=== PATIENT | female | born 1945 | race Two or more races ===

== ENCOUNTER 2025-01-22 10:46 | Inpatient (IN) | payer OTHER ==
[~2025-01-22] VITALS: Ht 144.8 cm; Wt 53.5 kg
[2025-01-22 14:16] LABS: BASO % 0.6 % (0.1-1.2); EOS # 0.18 (0.04-0.54); EOS % 2.7 % (0.7-7.0); LYMPH # 1.64 (1.18-3.74); LYMPH % 24.3 % (19.3-53.1); MEAN PLATELET VOLUME 10.30 fl (9.4-12.4); MONO # 0.52 (0.24-0.82); MONO % 7.7 % (4.7-12.5); NEUT # 4.36 (1.56-6.13); NEUT % 64.6 % (34.0-71.1); RED CELL DISTRIBUTION WIDTH 13.1 % (11.6-14.4)
[2025-01-22] MEDS ORDERED: ASPIRIN 325 MG TABLET.EC PO ONE ×2 (14:30→15:58)
[2025-01-22 14:35] LABS: BUN CREA RATIO 22.0 (7.0-25.0); CREATININE SERUM 0.92 mg/dL (0.55-1.02); GFR 58.73; GLUCOSE FASTING 85.0 mg/dL (65-100); OSMOLALITY SERUM 283.0 MOSM/KG (275-295)
[2025-01-22] MEDS ORDERED: ATORVASTATIN CALCIUM 40 MG TABLET PO SCH (17:09)
[2025-01-22] MEDS ORDERED: ACETAMINOPHEN 500 MG GEL..CAP PO PRN (17:15)
[2025-01-22] MEDS ORDERED: 0.9 % SODIUM CHLORIDE 1,000 ML IV SCH (17:15)
[2025-01-22 18:44] LABS: INR 1.01
[2025-01-22 18:59] LABS: URINE APPEARANCE Clear; URINE BILIRRUBIN Negative (NEGATIVE); URINE BLOOD Negative; URINE COLOR Yellow; URINE GLUCOSE Negative (NEGATIVE); URINE KETONE Negative (NEGATIVE); URINE LEUKOCYTE Small; URINE NITRATE Negative; URINE PROTEIN Negative (NEGATIVE); URINE UROBILINOGEN 0.2 E.U./dl
[2025-01-22 19:04] LABS: URINE BACTERIA 75.4 uL (0.0-1933); URINE EPITHELIAL CELLS 16.0 uL (0.0-38.8); URINE WBC 49.1 uL (0.0-23.2)
[2025-01-22 19:08] LABS: URINE CAST 0.14 uL (0.0-1.40); URINE RBC 0.4 uL (0.0-20.8)
[2025-01-22 22:15] VITALS: O2SAT 97
[2025-01-23] VITALS (7 sets, daily range): BP systolic 110–132; BP diastolic 66–69; O2SAT 95–100
[2025-01-23 07:10] LABS: CHOL HDL RATIO 4.3 (0-5.0); HDL 42.0 mg/dl (40-60); LDL 113.0 mg/dl (0-130); TSH 1.59 uIU/mL (0.358-3.74); VLDL 25.0 (0-39)
[2025-01-23] MEDS ORDERED: FAMOTIDINE/PF 20 MG in 0.9 % SODIUM CHLORIDE 8 ML IV PUSH SCH (09:00)
[2025-01-23] MEDS ORDERED: ASPIRIN 81 MG TAB.CHEW PO SCH (09:00)
[2025-01-23] MEDS ORDERED: ENOXAPARIN SODIUM 40 MG/0.4 ML SYRINGE SUBCUTANEO SCH (09:00)
[2025-01-23] MEDS ORDERED: CLOPIDOGREL BISULFATE 75 MG TABLET PO NR (19:00)
[2025-01-24] VITALS (8 sets, daily range): BP systolic 108–130; BP diastolic 65–68; O2SAT 94–98
[2025-01-24] MEDS ORDERED: CLOPIDOGREL BISULFATE 75 MG TABLET PO SCH (09:00)
[2025-01-24] MEDS ORDERED: CLOPIDOGREL BIS75 MG PO (20:13)
[2025-01-24] MEDS ORDERED: LIPITOR20 MG PO (20:13)
== END 2025-01-24 20:16 | disposition home or self-care (01) | DRG 69 ==
LOC: ER 10:47 → MEDJ 17:10
PROVIDERS: Emergency Medicine; General Practice; ADMIT Internal Medicine; ATTEND Internal Medicine
PROC: B030ZZZ Magnetic Resonance Imaging (MRI) of Brain (ICD-10-PCS; principal; 2025-01-22)
PROC: BW28ZZZ Computerized Tomography (CT Scan) of Head (ICD-10-PCS; 2025-01-22)
PROC: B345ZZZ Ultrasonography of Bilateral Common Carotid Arteries (ICD-10-PCS; 2025-01-22)
PROC: 4A12X4Z Monitoring of Cardiac Electrical Activity, External Approach (ICD-10-PCS; 2025-01-22)
PROC: BR20ZZZ Computerized Tomography (CT Scan) of Cervical Spine (ICD-10-PCS; 2025-01-23)
PROC: BP29ZZZ Computerized Tomography (CT Scan) of Left Shoulder (ICD-10-PCS; 2025-01-23)
DX: G45.9 Transient cerebral ischemic attack, unspecified (principal); R42 Dizziness and giddiness
CPT/HCPCS: 70551